=== PATIENT | male | born 1990 | race African-American/Black ===

== ENCOUNTER 2022-02-11 18:15 | Emergency (ER) | payer OTHER ==
[~2022-02-11] VITALS: Ht 167.6 cm; Wt 68.5 kg
[2022-02-11 18:30] VITALS: BP 134/79
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
[2022-02-11] MEDS: HYDROcodone/APAP 5/325MG 1 TAB TABLET PO ONE (19:13)
== END 2022-02-11 19:19 | disposition home or self-care (01) ==
LOC: ER 18:15
DX: R51.9 Headache, unspecified (principal); M54.2 Cervicalgia; M25.512 Pain in left shoulder; V43.52XA Car driver injured in collision with other type car in traffic accident, initial encounter; Y93.89 Activity, other specified; Y92.488 Other paved roadways as the place of occurrence of the external cause; Y99.8 Other external cause status
CPT/HCPCS: 70450; 72125; 73030; 99284-25